=== PATIENT | female | born 2000 | race Hispanic/Latino ===

== ENCOUNTER 2019-08-14 07:26 | Emergency (ER) | payer OTHER ==
[~2019-08-14] VITALS: Ht 157.5 cm; Wt 79.4 kg
[2019-08-14] MEDS ORDERED: SODIUM CHLORIDE 0.9% 1000ML 1,000 ML IV SCH (07:30)
[2019-08-14] MEDS ORDERED: MORPHINE SULFATE 5 MG/ML VIAL IV ONE (07:30)
[2019-08-14] MEDS ORDERED: ONDANSETRON HCL INJ 2MG/ML 2ML 2 MG/ML VIAL IV STA (07:30)
[2019-08-14] MEDS ORDERED: FAMOTIDINE 20 MG/2 ML VIAL IV STA (07:30)
[2019-08-14 08:01] LABS: BASOPHILS # (AUTO) 0.1 (0.0-0.1); BASOPHILS % 0.6 % (0.0-1.0); EOSINOPHILS % 0.5 % (0.0-6.0); HEMATOCRIT 35.8 % (34.2-44.1); HEMOGLOBIN 11.8 g/dL (12.0-16.0); LYMPHOCYTES # (AUTO) 1.8 (1.0-3.2); LYMPHOCYTES % 21.6 % (18.0-39.1); MEAN CORPUSCULAR HEMOGLOBIN 28.7 pg (28-32); MEAN CORPUSCULAR VOLUME 87.1 fL (81-99); MONOCYTES # (AUTO) 0.7 (0.2-0.8); MONOCYTES % 8.2 % (4.4-11.3); NEUTROPHILS # (AUTO) 5.7 (2.1-6.9); PLATELET COUNT 340 x10e3/uL (140-360); RED BLOOD COUNT 4.11 x10e6/uL (3.6-5.1); RED CELL DISTRIBUTION WIDTH 13.6 % (11.7-14.4)
[2019-08-14] MEDS ORDERED: MORPHINE SULFATE INJ 4 MG/ML INJ 1ML ONE (08:02)
[2019-08-14 08:07] LABS: CLARITY,URINE SL CLOUDY (CLEAR); COLOR,URINE YELLOW (YELLOW)
[2019-08-14 08:08] LABS: BILIRUBIN,URINE SMALL (NEGATIVE); KETONES,URINE NEGATIVE (NEGATIVE); LEUKOCYTE ESTERASE ,URINE TRACE (NEGATIVE); NITRITE,URINE NEGATIVE (NEGATIVE); PROTEIN,URINE DIPSTICK NEGATIVE (NEGATIVE); URINE UROBILINOGEN 0.2 mg/dL (0.2 - 1)
[2019-08-14 08:09] LABS: PREGNANCY TEST, URINE NEGATIVE (NEGATIVE)
[2019-08-14 08:16] LABS: BACTERIA,URINE FEW /HPF; EPITHELIAL CELLS,URINE MODERATE /LPF; MUCUS,URINE FEW (RARE); RBC,URINE 0-5 /HPF (0-5)
[2019-08-14 08:19] LABS: ALANINE AMINOTRANSFERASE 41 IU/L (0-55); ALBUMIN 3.8 g/dL (3.5-5.0); ALBUMIN/GLOBULIN RATIO 1.2 (0.8-2.0); ALKALINE PHOSPHATASE 102 IU/L (40-150); ANION GAP 14.7 mmol/L (8-16); BLOOD UREA NITROGEN 11 mg/dL (7-26); BUN/CREATININE RATIO 17 (6-25); CALCIUM 9.7 mg/dL (8.4-10.2); CARBON DIOXIDE 22 mmol/L (22-29); CHLORIDE 105 mmol/L (98-107); CREATININE, SERUM 0.65 mg/dL (0.57-1.11); EST GLOMERULAR FILTRATION RATE > 60 ML/MIN (60-); GLUCOSE 98 mg/dL (74-118); POTASSIUM 3.7 mmol/L (3.5-5.1); SODIUM 138 mmol/L (136-145)
[2019-08-14] MEDS ORDERED: TRIMETHOPRIM/SULFAMETHOXAZOLE 160-800 MG TAB PO NR (08:30)
[2019-08-14] MEDS ORDERED: BACTRIM DS TAB1 EACH PO (08:39)
[2019-08-14] MEDS ORDERED: ZOFRAN4 MG SL (08:39)
--- NOTE | 2019-08-14 08:39 | NUR ---
DR. BILL AT BEDSIDE RE EVALUATING PATIENT AND DISCUSSING PLAN OF CARE WITH HER.
--- NOTE | 2019-08-14 09:02 | NUR ---
ULTRASOUND AT BEDSIDE
--- NOTE | 2019-08-14 09:52 | Diagnostic Imaging Report ---
EXAM: Right Upper Quadrant Ultrasound INDICATION: ^[id number] pain ^[id number] ^[id number] COMPARISON: None. TECHNIQUE: Transverse and longitudinal images of the right upper abdomen were obtained. FINDINGS: Liver: Size: 16.2 cm in the right midclavicular line, mildly enlarged Appearance: Normal echogenicity, smooth contour Mass: No focal masses Gallbladder: Stones/Sludge: Echogenic stones with trace amount of sludge are noted in the gallbladder lumen. Wall: 0.2 cm Appearance: No wall thickening, pericholecystic fluid or hydrops. Sonographic Escalona's Sign: Negative Bile Ducts: Intrahepatic Ducts: No dilatation Extrahepatic Ducts: Common bile duct measures 0.7 cm, borderline to minimally dilated Pancreas: Visualized portions of the pancreatic neck and proximal body are normal. Kidneys: Length: Right 10.3 cm Echogenicity: Normal Collecting System: No hydronephrosis Stone: None Cyst/Mass: None Vessels: Aorta: Visualized portions are normal Inferior Vena Cava: Visualized portions are normal Main Portal Vein: 1.0 cm, normal size with hepatopetal flow. Free Fluid: No ascites or pleural effusion IMPRESSION: 1. Cholelithiasis and trace sludge, without evidence of cholecystitis. 2. Borderline to minimal dilation of the CBD. No echogenic intraluminal filling defects are identified. No intrahepatic biliary ductal dilation. Consider MRI abdomen/MRCP, if there is clinical concern for choledocholithiasis. 3. Mild hepatomegaly. No focal lesions. Signed by: Dr. Mc Watson M.D. on 08/14/2019 9:49 AM
== END 2019-08-14 09:15 | disposition home or self-care (01) ==
LOC: ER 07:26
DX: R10.11 Right upper quadrant pain (principal); R11.2 Nausea with vomiting, unspecified; K80.70 Calculus of gallbladder and bile duct without cholecystitis without obstruction; N30.90 Cystitis, unspecified without hematuria
CPT/HCPCS: 36415; 76705; 80053; 81001; 81025; 83690; 85025; 99284; J2270 ×2; J2405; J7030